=== PATIENT | female | born 1945 | race Caucasian/White ===

== ENCOUNTER 2021-12-13 06:55 | Emergency (ER) | payer OTHER, SELFPAY ==
[2021-12-13] VITALS (16 sets, daily range): BP systolic 98–133; BP diastolic 51–69; PULSE 79–103; RESP 12–26; TEMP 36.9–38.7; O2SAT 93–98; BMI 23.2
--- NOTE | 2021-12-13 07:03 | ED_ITS ---
HPI - General Adult General Chief complaint: Abdominal Pain Stated complaint: Left upper/lower Q Pain Time Seen by Provider: 12/13/21 07:02 History of Present Illness HPI narrative: 76-year-old woman with depression presents with 3 days of worsening abdominal pain, fever, mild hypotension. She reports nausea but no overt emesis. Headache, left flank pain that is beginning progressively worse. No p.o. intake for the last 3 days. No diarrhea. No chest pain, palpitation orthopnea, dyspnea, weakness or paresthesias, no skin changes. Related Data Allergies Allergy/AdvReac Type Severity Reaction Status Date / Time No Known Drug Allergies Allergy Verified 12/13/21 07:16 Review of Systems Review of Systems Narrative: Remainder of complete review of systems is otherwise unremarkable except for that included in the HPI. Patient History Medical History (Updated 12/13/21 @ 09:42 by Mary Galan MD) Depression Exam Initial Vital Signs Initial Vital Signs: Vital Signs Temperature 101.7 F H 12/13/21 07:00 Pulse Rate 103 H 12/13/21 07:00 Respiratory Rate 18 12/13/21 07:00 Blood Pressure 133/69 12/13/21 07:00 Pulse Oximetry 95 12/13/21 07:00 General: Acutely ill-appearing, dehydrated, significant pain however Able to give a complete and coherent history. HEENT: dry mucous membranes, normal sclera with reactive pupils, Neck: No JVD, supple Respiratory: Lungs are clear to auscultation, no wheezing no rales no rhonchi. Full and symmetrical air movement Cardiac: Regular rate and rhythm no murmurs no bruits Abdomen: Soft, significant left flank pain and mild tenderness in remainder of abdominal connor. Skin: Pale, Warm and dry, no rashes Neurologic: Grossly neurologically intact with no obvious asymmetries or abnormalities Extremities: No trauma, well perfused Psych: Cooperative, appropriate insight and affect Course Orders Ordered: Discontinued Medications Acetaminophen (Acetaminophen 325 Mg Tablet) 975 mg PO NOW ONE Stop: 12/13/21 08:57 Last Admin: 12/13/21 09:39 Dose: 975 mg Documented by: DAVE Duloxetine HCl (Duloxetine 20 Mg Capsule) 20 mg PO NOW ONE Stop: 12/13/21 08:57 Last Admin: 12/13/21 09:39 Dose: 20 mg Documented by: DAVE Hydromorphone HCl (Hydromorphone 0.5 Mg Inj) 0.5 mg IV Q15MIN PRN PRN Reason: Pain, Last Admin: 12/13/21 09:40 Dose: 0.5 mg Documented by: Admin: 12/13/21 07:14 Dose: 0.5 mg Documented by: SUZETTE Sodium Chloride (Normal Saline 0.9%) 1,000 mls @ 1,000 mls/hr IV BOLUS ONE Stop: 12/13/21 08:03 Last Infusion: 12/13/21 09:00 Dose: 0 mls/hr Documented by: Admin: 12/13/21 07:15 Dose: 1,000 mls/hr Documented by: SUZETTE Sodium Chloride (Normal Saline 0.9%) 1,000 mls @ 1,000 mls/hr IV BOLUS ONE Stop: 12/13/21 09:55 Last Infusion: 12/13/21 10:35 Dose: 0 mls/hr Documented by: Admin: 12/13/21 09:41 Dose: 1,000 mls/hr Documented by: DAVE Sodium Chloride (Normal Saline 0.9%) 1,000 mls @ 150 mls/hr IV CONT LUIS Last Infusion: 12/13/21 11:02 Dose: 0 mls/hr Documented by: Admin: 12/13/21 09:45 Dose: 150 mls/hr Documented by: DAVE Piperacillin Sod/Tazobactam (Sod 4.5 gm/ Sodium Chloride) 100 mls @ 200 mls/hr IV NOW ONE Stop: 12/13/21 09:40 Last Infusion: 12/13/21 10:34 Dose: 0 mls/hr Documented by: Admin: 12/13/21 09:44 Dose: 200 mls/hr Documented by: DAVE Vancomycin HCl (Vancomycin) 1,000 mg in 200 mls @ 200 mls/hr IV Q24H [facility] Last Infusion: 12/13/21 11:01 Dose: 0 mls/hr Documented by: Admin: 12/13/21 10:49 Dose: 200 mls/hr Documented by: DAVE Ondansetron HCl (Ondansetron 4 Mg/2 Ml Inj) 4 mg IV NOW ONE Stop: 12/13/21 07:05 Last Admin: 12/13/21 07:14 Dose: 4 mg Documented by: SUZETTE Vancomycin HCl (Vancomycin Per Pharmacy) 1 request MISC NOW ONE Stop: 12/13/21 09:40 Last Admin: 12/13/21 10:49 Dose: Not Given Documented by: DAVE Vital Signs Vital signs: Vital Signs - 8 hr 12/13/21 09:55 12/13/21 09:58 12/13/21 10:00 Temperature Pulse Rate 82 81 85 Respiratory Rate 17 18 20 Blood Pressure 99/54 L 99/54 L 130/62 Pulse Oximetry 98 98 12/13/21 10:29 12/13/21 10:30 12/13/21 10:31 Temperature 98.5 F 98.5 F Pulse Rate 80 79 Respiratory Rate 26 H 26 H Blood Pressure 99/51 L Pulse Oximetry 98 97 Medical Decision Making Lab Data Result diagrams: 12/13/21 07:11 12/13/21 07:11 Labs: Lab Results 12/13/21 12/13/21 12/13/21 Range/Units 07:11 07:11 07:11 WBC 12.2 H (4.5-11.0) X10^3/uL RBC 3.77 L (4.0-5.2) X10^6/uL Hgb 12.2 (12.0-16.0) g/dL Hct 36.4 (36-46) % MCV 96.8 (80-100) fL MCH 32.3 (26-34) PG MCHC 33.4 (30-36) % RDW 12.7 (11.6-14.8) % Plt Count 145 L (150-400) X10^3/uL Neut % (Auto) 92.7 H (50-75) % Lymph % (Auto) 1.9 L (25-40) % [place] % (Auto) 5.0 (3-14) % Eos % (Auto) 0.2 L (2-4) % Baso % (Auto) 0.2 (0-2) % Neut # (Auto) 13615 H (4481-9478) /uL Lymph # (Auto) 200 L (7443-3200) /uL [place] # (Auto) 600 (0-900) /uL Eos # (Auto) 0 (0-450) /uL Baso # (Auto) 0 (0-100) /uL Sodium 131 L (137-145) mmol/L Potassium 3.6 (3.4-5.1) mmol/L Chloride 100 (98-107) mmol/L Carbon Dioxide 23 (22-32) mmol/L BUN 17 (7-17) mg/dL Creatinine 0.97 (0.52-1.04) mg/dL Estimated GFR > 60 (>60) mL/min BUN/Creatinine Ratio 17.5 (6-22) Glucose 135 H (80-110) mg/dL Lactate 1.2 (0.7-2.1) mmol/L Calcium 8.4 (8.4-10.2) mg/dL Magnesium 1.9 (1.6-2.3) mg/dL Total Bilirubin 0.5 (0.2-1.3) mg/dL AST 32 (14-36) IU/L ALT 25 (<35) IU/L Alkaline Phosphatase 65 (38-126) U/L Total Protein 6.8 (6.3-8.2) g/dL Albumin 3.9 (3.5-5.0) g/dL Globulin 2.9 (1.7-4.1) g/dL Albumin/Globulin Ratio 1.3 (1.0-2.8) Lipase 42 (23-300) U/L Urine Color Urine Appearance Urine pH (4.5-8.0) Ur Specific [place] (1.000-1.035) Urine Protein (Negative) Urine Glucose (UA) (Negative) g/dL Urine Ketones (NEGATIVE) Urine Occult Blood (Negative) Urine Nitrate (Negative) Urine Bilirubin (NEGATIVE) Urine Urobilinogen (0.2) E.U./dL Ur Leukocyte Esterase (NEGATIVE) Urine RBC (0-5/HPF) Urine WBC (0-5/HPF) Ur Squamous Epith Cells (0-5/HPF) Amorphous Sediment Urine Bacteria (None) Ur Culture Indicated? SARS-CoV-2 (PCR) (Negative) 12/13/21 12/13/21 Range/Units 07:19 08:20 WBC (4.5-11.0) X10^3/uL RBC (4.0-5.2) X10^6/uL Hgb (12.0-16.0) g/dL Hct (36-46) % MCV (80-100) fL MCH (26-34) PG MCHC (30-36) % RDW (11.6-14.8) % Plt Count (150-400) X10^3/uL Neut % (Auto) (50-75) % Lymph % (Auto) (25-40) % [place] % (Auto) (3-14) % Eos % (Auto) (2-4) % Baso % (Auto) (0-2) % Neut # (Auto) (0282-5341) /uL Lymph # (Auto) (5532-5960) /uL [place] # (Auto) (0-900) /uL Eos # (Auto) (0-450) /uL Baso # (Auto) (0-100) /uL Sodium (137-145) mmol/L Potassium (3.4-5.1) mmol/L Chloride (98-107) mmol/L Carbon Dioxide (22-32) mmol/L BUN (7-17) mg/dL Creatinine (0.52-1.04) mg/dL Estimated GFR (>60) mL/min BUN/Creatinine Ratio (6-22) Glucose (80-110) mg/dL Lactate (0.7-2.1) mmol/L Calcium (8.4-10.2) mg/dL Magnesium (1.6-2.3) mg/dL Total Bilirubin (0.2-1.3) mg/dL AST (14-36) IU/L ALT (<35) IU/L Alkaline Phosphatase (38-126) U/L Total Protein (6.3-8.2) g/dL Albumin (3.5-5.0) g/dL Globulin (1.7-4.1) g/dL Albumin/Globulin Ratio (1.0-2.8) Lipase (23-300) U/L Urine Color Yellow Urine Appearance Clear Urine pH 6.0 (4.5-8.0) Ur Specific [place] <=1.005 (1.000-1.035) Urine Protein 2+ H (Negative) Urine Glucose (UA) Negative (Negative) g/dL Urine Ketones Negative (NEGATIVE) Urine Occult Blood 3+ H (Negative) Urine Nitrate Negative (Negative) Urine Bilirubin Negative (NEGATIVE) Urine Urobilinogen 0.2 (0.2) E.U./dL Ur Leukocyte Esterase Trace H (NEGATIVE) Urine RBC 5-10/hpf H (0-5/HPF) Urine WBC 10-30/hpf H (0-5/HPF) Ur Squamous Epith Cells 1-5 /hpf (0-5/HPF) Amorphous Sediment 1+ Urine Bacteria Many (>30) H (None) Ur Culture Indicated? Specimen cultured SARS-CoV-2 (PCR) Negative (Negative) Imaging Data CT scan - abdomen/pelvis: Radiologist's Impression: FINDINGS:? Image quality:? Excellent.? ? Lung bases:? Unremarkable.? ? Heart:? No significant findings. ? ? ABDOMEN: Liver: Diffuse fatty liver infiltration is noted.? The liver is normal in size and demonstrates no suspicious lesions. Gallbladder:? Unremarkable.? ? Biliary ducts:? Unremarkable.? ? Pancreas:? Focal pancreatic abnormality is seen.? The pancreatic duct is minimally prominent 4 mm.? Pancreas demonstrates normal bulk and demonstrates no abnormally enhancing areas.? Spleen:? Unremarkable.? ? Adrenal Glands:? The adrenal glands demonstrate generalized thickening, without focal nodules. Kidneys and Ureters:? There is moderate left-sided hydroureter and hydronephrosis.? There is an obstructing stone seen at the left ureteropelvic junction that measures 5 mm, as on series 2, image 68 and on series 4, image 32. It measures 500 Hounsfield units. The left kidney is prominent in size and demonstrates mild perinephric fat stranding.? Areas of poor enhancement can be seen involving the left kidney, particularly superiorly.? The right kidney demonstrates normal size and normal enhancement.? No right-sided hydronephrosis is seen. ? Stomach and Bowel:? Stomach, small bowel loops, and colon are unremarkable.? M inimal distal colonic diverticulosis is seen, without findings of active diverticulitis. Peritoneum:? No abnormal intraperitoneal fluid.? No free air.? ? Ventral Wall: ? No hernia.? Abdominal Nodes:? No retroperitoneal or mesenteric adenopathy by size criteria.? Vessels:? Aorta and inferior vena cava are normal in size.? Atherosclerotic calcification is noted.? ? PELVIS: Pelvic Organs:? A fibroid uterus is seen.? No adnexal masses are seen on either side.? Bladder:? Unremarkable.? ? Pelvic Nodes: No enlarged lymph nodes.? Miscellaneous: No inguinal hernias are seen. ? ? ? Bones:? Age-appropriate bony degenerative changes are seen.? ? ? IMPRESSION:? ? 5 mm obstructing stone seen involving the left ureterovesicular junction, with associated left-sided hydroureter, hydronephrosis, and perinephric fat stranding. ? Areas of poor enhancement can be seen involving the left kidney.? Please consi britta superimposed pyelonephritis. ? Mild prominence of the pancreatic duct can be seen.? No focal pancreatic abnormality is seen. ? ? Incidental note is made of: Fatty liver infiltration Prominent adrenal glands, without focal nodules seen. Diverticulosis, without active diverticulitis Fibroid uterus ? ? Dictated by: Hermilo Capellan M.D. on 12/13/2021 at 7:18? ?? [facility] Narrative Medical decision making narrative: 76-year-old woman presents with 3 days of abdominal pain increasing weakness and fever here in the emergency department. Blood pressure is decreasing in the emergency department started at 133/69 and is down to 99/58 after 1 L of fluid. Tachycardic initially however the fluid has helped with the tachycardia. Temperature was a 101.7?. Chemistries show no acute renal failure and BUN is 17. Initial lactic acid is 1.2. Urine has trace leukocyte esterase red cells, white cells many bacteria. CT scan shows obstructing left VVJ with pyelonephritis behind the obstructing stone. Sepsis protocol fluids will be initiated, Zosyn followed by vancomycin. Pain is been adequately controlled. She notes that she is having some mild withdrawal symptoms from not taking her duloxetine for the last number of days will go ahead and give her that along with Tylenol for her headache with a small sip of water only. Essentially no intake for the last [address] Wolff, urology, recommends urgent OR and stenting. This is not available at [facility] today. Will contact transfer center. 9:57 am emergent transfer to [facility]. ALS arrranged. Pt aware Critical Care Time Critical Care Time Critical Care Time: Yes Total Critical Care Time: 36 Attestation: Critical care time is separate from other billable procedures. There is a high probability of a significant, sudden or life-threatening deterioration that requires my full and direct attention, intervention and personal management. This critical care time includes consultation with family and other consulting doctors, review of records, and interpretation of data from labs, EKGs and i maging as well as managements of developing sepsis with obstructing ureteral stone. Discharge Plan Departure Patient Disposition: [facility] Clinical Impression: UPJ (ureteropelvic junction) obstruction, Left ureteral stone, Acute pyelonephritis Sepsis Qualifiers: Sepsis type: sepsis due to unspecified organism Sepsis acute organ dysfunction status: unspecified Qualified Code(s): A41.9 - Sepsis, unspecified organism Referrals: Charla Gibbons MD [Primary Care Provider] -
--- NOTE | 2021-12-13 07:05 | DI.CT.S_ITS ---
PROCEDURE: CT ABDOMEN PELVIS W CON INDICATIONS: severe abdominal pain for 3 days TECHNIQUE: After the administration of IV contrast, axial sections were acquired from the lung bases to the pubic symphysis. Coronal and sagittal reformats were performed. For radiation dose reduction, the following was used: automated exposure control, adjustment of mA and/or kV according to patient size. COMPARISON: [facility], CT, CT LOW DOSE LUNG CA SCREENING, 11/22/2021, 10:36. Formerly [facility], US, ABDOMEN SONOGRAM, 09/03/2011, 8:36. FINDINGS: Image quality: Excellent. Lung bases: Unremarkable. Heart: No significant findings. ABDOMEN: Liver: Diffuse fatty liver infiltration is noted. The liver is normal in size and demonstrates no suspicious lesions. Gallbladder: Unremarkable. Biliary ducts: Unremarkable. Pancreas: Focal pancreatic abnormality is seen. The pancreatic duct is minimally prominent 4 mm. Pancreas demonstrates normal bulk and demonstrates no abnormally enhancing areas. Spleen: Unremarkable. Adrenal Glands: The adrenal glands demonstrate generalized thickening, without focal nodules. Kidneys and Ureters: There is moderate left-sided hydroureter and hydronephrosis. There is an obstructing stone seen at the left ureteropelvic junction that measures 5 mm, as on series 2, image 68 and on series 4, image 32. It measures 500 Hounsfield units. The left kidney is prominent in size and demonstrates mild perinephric fat stranding. Areas of poor enhancement can be seen involving the left kidney, particularly superiorly. The right kidney demonstrates normal size and normal enhancement. No right-sided hydronephrosis is seen. Stomach and Bowel: Stomach, small bowel loops, and colon are unremarkable. Minimal distal colonic diverticulosis is seen, without findings of active diverticulitis. Peritoneum: No abnormal intraperitoneal fluid. No free air. Ventral Wall: No hernia. Abdominal Nodes: No retroperitoneal or mesenteric adenopathy by size criteria. Vessels: Aorta and inferior vena cava are normal in size. Atherosclerotic calcification is noted. PELVIS: Pelvic Organs: A fibroid uterus is seen. No adnexal masses are seen on either side. Bladder: Unremarkable. Pelvic Nodes: No enlarged lymph nodes. Miscellaneous: No inguinal hernias are seen. Bones: Age-appropriate bony degenerative changes are seen. IMPRESSION: 5 mm obstructing stone seen involving the left ureterovesicular junction, with associated left-sided hydroureter, hydronephrosis, and perinephric fat stranding. Areas of poor enhancement can be seen involving the left kidney. Please consider superimposed pyelonephritis. Mild prominence of the pancreatic duct can be seen. No focal pancreatic abnormality is seen. Incidental note is made of: Fatty liver infiltration Prominent adrenal glands, without focal nodules seen. Diverticulosis, without active diverticulitis Fibroid uterus Dictated by: Hermilo Capellan M.D. on 12/13/2021 at 7:18 Approved by: Hermilo Capellan M.D. on 12/13/2021 at 7:24
[2021-12-13] MEDS: HYDROMORPHONE 0.5 MG INJ IV ×2 (07:14→09:40)
[2021-12-13] MEDS: ONDANSETRON 4 MG/2 ML INJ IV (07:14)
[2021-12-13] MEDS: SODIUM CHLORIDE 0.9% 1,000 ML 1000 ML IV ×2 (07:15→09:41)
[2021-12-13 07:25] LABS: Add Manual Diff / Slide Review NO; Basophils Absolute Auto 0 /uL (0-100); Basophils Percent Auto 0.2 % (0-2); Eosinophils Absolute Auto 0 /uL (0-450); Eosinophils Percent Auto 0.2 % (2-4); Hematocrit 36.4 % (36-46); Hemoglobin 12.2 g/dL (12.0-16.0); Lymphocytes Absolute Auto 200 /uL (1100-4500); Lymphocytes Percent Auto 1.9 % (25-40); Mean Corpuscular HGB Conc 33.4 % (30-36); Mean Corpuscular Hemoglobin 32.3 PG (26-34); Mean Corpuscular Volume 96.8 fL (80-100); Monocytes Absolute Auto 600 /uL (0-900); Neutrophils Absolute Auto 11300 /uL (1500-7000); Neutrophils Percent Auto 92.7 % (50-75); Platelet Count 145 X10^3/uL (150-400); Red Blood Cell Count 3.77 X10^6/uL (4.0-5.2); Red Cell Distribution Width 12.7 % (11.6-14.8); White Blood Cell Count 12.2 X10^3/uL (4.5-11.0)
[2021-12-13 07:32] LABS: Lactate (Lactic Acid) 1.2 mmol/L (0.7-2.1)
[2021-12-13 07:33] LABS: Alanine Aminotransferase 25 IU/L (<35); Albumin 3.9 g/dL (3.5-5.0); Albumin Globulin Ratio 1.3 (1.0-2.8); Alkaline Phosphatase 65 U/L (38-126); Aspartate Aminotransferase 32 IU/L (14-36); BUN Creatinine Ratio 17.5 (6-22); Bilirubin Total 0.5 mg/dL (0.2-1.3); Blood Urea Nitrogen 17 mg/dL (7-17); Calcium 8.4 mg/dL (8.4-10.2); Carbon Dioxide 23 mmol/L (22-32); Chloride 100 mmol/L (98-107); Estimated Glomerular Filt Rate > 60 mL/min (>60); Globulin 2.9 g/dL (1.7-4.1); Glucose 135 mg/dL (80-110); HEMOLYSIS < 15 (0-50); Lipase 42 U/L (23-300); Magnesium 1.9 mg/dL (1.6-2.3); Potassium 3.6 mmol/L (3.4-5.1); Sodium 131 mmol/L (137-145); Total Protein 6.8 g/dL (6.3-8.2)
[2021-12-13 07:40] LABS: COVID19 -Nasal RAPID Negative (Negative)
[2021-12-13 08:27] LABS: Appearance Urine UA CLEAR; Bilirubin Urine UA NEGATIVE (NEGATIVE); Color Urine UA YELLOW; Glucose Urine UA NEGATIVE (Negative); Ketones Urine UA NEGATIVE (NEGATIVE); Leukocyte Esterase Urine UA TRACE (NEGATIVE); Nitrite Urine UA NEGATIVE (Negative); Occult Blood Urine UA 3+ (Negative); Protein Urine UA 2+ (Negative); Specific Gravity Urine UA <=1.005 (1.000-1.035); Urobilinogen Urine UA 0.2 E.U./dL (0.2)
[2021-12-13 08:35] LABS: Amorphous Sediment Urine 1+; Bacteria Urine Many (>30); Culture Indicated Urine Specimen Cultured; RBC Urine 5-10/HPF (0-5/HPF); Squamous Epithelial Cell Urine 1-5 /HPF (0-5/HPF); WBC Urine 10-30/HPF (0-5/HPF)
[2021-12-13] MEDS: DULOXETINE 20 MG CAPSULE PO (09:39)
[2021-12-13] MEDS: ACETAMINOPHEN 325 MG TABLET 975 MG PO (09:39)
[2021-12-13] MEDS: PIPERACILLIN/TAZO 4.5 GM in SODIUM CHLORIDE 0.9% 100 ML 200 ML IV (09:44)
[2021-12-13] MEDS: SODIUM CHLORIDE 0.9% 1,000 ML 150 ML IV (09:45)
[2021-12-13] MEDS: VANCOMYCIN 1,000 MG/200 ML PIGGYBACK 200 MG IV (10:49)
[2021-12-13 23:37] LABS: Acinetobacter baumannii Not Detected (Not Detect); E. coli Detected (Not Detect); Enterobacter cloacae complex Not Detected (Not Detect); Enterobacteriaceae species Detected (Not Detect); Enterococcus species Not Detected (Not Detect); KPC (carbapenem-resist gene) Not Detected (Not Detect); Listeria monocytogenes Not Detected (Not Detect); Proteus species Not Detected (Not Detect); Serratia marcescens Not Detected (Not Detect); Staphylococcus species Not Detected (Not Detect); Streptococcus agalactiae (Gr B Not Detected (Not Detect); Streptococcus pneumonia Not Detected (Not Detect); Streptococcus pyogenes (Gr A) Not Detected (Not Detect); Streptococcus species Not Detected (Not Detect)
[2021-12-13 23:38] LABS: Candida albicans Not Detected (Not Detect); Candida glabrata Not Detected (Not Detect); Candida krusei Not Detected (Not Detect); Candida parapsilosis Not Detected (Not Detect); Candida tropicalis Not Detected (Not Detect); Haemophilus influenzae Not Detected (Not Detect); Neisseria meningitidis Not Detected (Not Detect); Pseudomonas aeruginosa Not Detected (Not Detect)
== END 2021-12-13 11:03 | disposition short-term general hospital (02) ==
PROVIDERS: Emergency Provider Emergency Medicine; PCP Family Medicine
DX: N13.0 Hydronephrosis with ureteropelvic junction obstruction (principal); N10 Acute pyelonephritis; A41.9 Sepsis, unspecified organism; Z20.822 Contact with and (suspected) exposure to COVID-19
CPT/HCPCS: 36415; 74177; 80053; 81001; 83605; 83690; 83735; 85025; 87040; 87077; 87086; 87150; 87186; 87205; 87635; 96361; 96365; 96375; 99284; 99291; 99292; C9803; J1170; J2405; J2543; Q9967